=== PATIENT | male | born 1980 | race Caucasian/White ===

== ENCOUNTER 2018-12-31 16:14 | Emergency (ER) | payer OTHER ==
[~2018-12-31] VITALS: Ht 185.4 cm; Wt 156.5 kg
[2018-12-31] MEDS: ONDANSETRON 4 MG (ZOFRAN) ORAL DISSOLVE TAB ONE ×2 (16:36→16:46)
[2018-12-31] MEDS ORDERED: LACTATED RINGERS 1,000 ML IV ONE (16:40)
[2018-12-31] MEDS ORDERED: ONDANSETRON 4 MG (ZOFRAN) ORAL DISSOLVE TAB SL ONE (16:45)
[2018-12-31 16:48] LABS: BASOPHILS # (AUTO) 0.1 10^3/uL (0.0-0.1); BASOPHILS % (AUTO) 1 % (0-10); EOSINOPHILS # (AUTO) 0.3 10^3/uL (0.0-0.3); EOSINOPHILS % (AUTO) 4 % (0-10); HEMATOCRIT 46 % (40-54); HEMOGLOBIN 15.8 G/DL (13.3-17.7); LYMPHOCYTES # (AUTO) 3.2 X 10^3 (1.0-4.0); LYMPHOCYTES % (AUTO) 41 % (12-44); MEAN CORPUSCULAR HEMOGLOBIN 29 PG (25-34); MEAN CORPUSCULAR HGB CONC 34 G/DL (32-36); MEAN CORPUSCULAR VOLUME 84 FL (80-99); MEAN PLATELET VOLUME 8.7 FL (7.4-10.4); MONOCYTES # (AUTO) 0.7 X 10^3 (0.0-1.0); MONOCYTES % (AUTO) 9 % (0-12); NEUTROPHILS # (AUTO) 3.6 X 10^3 (1.8-7.8); NEUTROPHILS % (AUTO) 46 % (42-75); PLATELET COUNT 280 10^3/uL (130-400); RED CELL DISTRIBUTION WIDTH 12.7 % (10.0-14.5); WHITE BLOOD COUNT 7.9 10^3/uL (4.3-11.0)
[2018-12-31 17:08] LABS: ALANINE AMINOTRANSFERASE 59 U/L (0-55); ALBUMIN 4.2 GM/DL (3.2-4.5); ALKALINE PHOSPHATASE 78 U/L (40-136); BILIRUBIN,TOTAL 0.4 MG/DL (0.1-1.0); BUN/CREATININE RATIO 14; CALCIUM 10.3 MG/DL (8.5-10.1); CARBON DIOXIDE 23 MMOL/L (21-32); CHLORIDE 106 MMOL/L (98-107); CREATININE SERUM 0.87 MG/DL (0.60-1.30); GFR ESTIMATED > 60; GLUCOSE 104 MG/DL (70-105); MAGNESIUM 1.9 MG/DL (1.8-2.4); POTASSIUM 3.7 MMOL/L (3.6-5.0); SODIUM 141 MMOL/L (135-145); TOTAL PROTEIN 7.5 GM/DL (6.4-8.2)
--- OUTSIDE RECORDS SUMMARY | 2018-12-31 17:20 | XMS REPORT | Continuity of Care Document ---
Author Organization Unknown Address Unknown Allergies Active Description Code Type Severity Reaction Onset Reported/Identified Relationship to Patient Clinical Status Yes NKA Drug N/A N/A Yes NKA Drug N/A N/A Medications Medication Packaging Start Date Stop Date Route Dosage Sig lisinopril 10/28/2016 11/05/2018 PO 20 mg / 1 tab sertraline 11/02/2018 PO 50 mg / 1 tab albuterol 11/02/2018 INH Proventil HFA 90 mcg/inh inhalation aerosol ergocalciferol 11/07/2018 [place] [id number] Unit (Int) / 1 cap Problems Date Dx Coded Attending Type Code Diagnosis Diagnosed By 12/20/2014 Vickey Hewitt Final 246.9 Unspecified Disorder of Thyroid Procedures There is no data. Results Test Result Range CBCA - 11/02/18 14:00 RDW 12.0 ZZ 11.5-14.0 MCH 28.5 ZZ 27.0-31.0 CREATINE KINASE (CPK) - 11/02/18 14:00 CK 99 ZZ 22-269 TSH, REFLEX TO FREE T4 - 11/02/18 14:00 Thyroid Stimulating Hormone 1.98 ZZ 0.34-5.60 Encounters ACCT No. Visit Date/Time Discharge Status Pt. Type Provider Facility Loc./Unit Complaint [id number] 11/02/2018 17:05:00 11/02/2018 23:59:00 DIS Outpatient Scott Capone [facility] FMBL [id number] 12/20/2014 10:36:00 12/20/2014 23:59:00 DIS Outpatient Vickey Hewitt Guarantor/person LAB LAB-FNA [id number] 11/02/2018 13:05:42 11/02/2018 23:59:59 DIS Outpatient Scott Capone [facility] FMB concerns [id number] 06/01/2018 08:05:14 06/01/2018 23:59:59 CLS Outpatient TEE MARTINEZ [facility] FMB PAIN IN [place] [id number] 11/12/2016 13:37:32 11/12/2016 23:59:59 CLS Outpatient Caridad Blair [facility] FMB LAB AND B/P CHECK [id number] 10/28/2016 10:54:44 10/28/2016 23:59:59 CLS Outpatient Caridad Blair [facility] FMB CK BP/BEEN WATCHING IT [id number] 11/20/2016 20:45:02 ACT Document Registration
--- NOTE | 2018-12-31 17:21 | ED General ---
General Chief Complaint: Dizziness/Syncope Stated Complaint: DIZZINESS Nursing Triage Note: AMB TO ROOM REPORTS WAS DRIVING CAR WHEN HE BECAME DIZZY WITH NAUSEA AND VOMITING Nursing Sepsis Screen: No Definite Risk Source of Information: Patient, Family Exam Limitations: No Limitations History of Present Illness Date Seen by Provider: Dec 31, 2018 Time Seen by Provider: 16:22 Initial Comments This 38-year-old gentleman presents to the emergency room by private vehicle after having a sudden bout of dizziness and vomiting. He was driving after spending a little time fishing when he suddenly felt dizzy. Vomiting ensued after the dizziness. He denies any disequilibrium or neurologic deficits. Dizziness is not dependent on movement or orthostatic position. He denies ever experiencing this before. He is feeling better now than he did when he was driving. He is from [place], [place] and is here visiting his aunt. He denies any recent acute illnesses, fever, drug or alcohol use, or other acute problems. Dizziness is described as a vertigo or spinning type of sensation. He denies disequilibrium, confusion, or lightheadedness. He denies any chest pain, palpitations or shortness of breath. Allergies and Home Medications Allergies Coded Allergies: No Known Drug Allergies (Unverified , 12/31/18) Home Medications Ondansetron 4 Mg Tab.rapdis, 4 MG SL Q4H PRN for NAUSEA/VOMITING Prescribed by: NARDA BECERRA on 12/31/18 0391 Patient Home Medication List Home Medication List Reviewed: Yes Review of Systems Review of Systems Constitutional: no symptoms reported EENTM: no symptoms reported Respiratory: no symptoms reported Cardiovascular: see HPI Gastrointestinal: no symptoms reported Genitourinary: no symptoms reported Musculoskeletal: no symptoms reported Skin: no symptoms reported Psychiatric/Neurological: See HPI Hematologic/Lymphatic: No Symptoms Reported Immunological/Allergic: no symptoms reported Past Vrezoup-Ohzffc-Unysts Hx Past Med/Social Hx: Reviewed and Corrections made Patient Social History Alcohol Use: Denies Use Recreational Drug Use: No Smoking Status: Never a Smoker Recent Foreign Travel: No Contact w/Someone Who Travel: No Recent Infectious Disease Expo: No Past Medical History Surgeries: Yes (THYROID) Orthopedic Respiratory: No Cardiac: Yes Hypertension Neurological: No Genitourinary: No Gastrointestinal: No Musculoskeletal: No Endocrine: Yes (vitamin D deficiency) Cancer: No Psychosocial: No Integumentary: No Physical Exam Vital Signs Vital Signs - First Documented 4/20/19 16:20 Temp 98.0 Pulse 91 Resp 18 B/P (MAP) 141/97 (112) Pulse Ox 94 O2 Delivery Room Air Capillary Refill : Less Than 3 Seconds Height, Weight, BMI Height: 6'1.00" Weight: 345lbs. oz. 156.350431fw; BMI Method:Stated General Appearance: No Apparent Distress, WD/WN, Obese HEENT: PERRL/EOMI, TMs Normal, Normal ENT Inspection, Pharynx Normal Neck: Normal Inspection; No Carotid Bruit, No JVD Respiratory: Lungs Clear, Normal Breath Sounds, No Accessory Muscle Use, No Respiratory Distress Cardiovascular: Regular Rate, Rhythm, No Edema, No Murmur Gastrointestinal: Normal Bowel Sounds; No Distended Extremity: Normal Inspection, No Pedal Edema Neurologic/Psychiatric: Alert, Oriented x3, No Motor/Sensory Deficits, Normal Mood/Affect, senior compensation analyst II-XII Norm as Tested, Other (normal heel to fowler and finger to nose. Normal gait. [place]-Hallpike negative bilaterally) Skin: Normal Color, Warm/Dry Progress/Results/Core Measures Suspected Sepsis Recent Fever Within 48 Hours: No Infection Criteria Present: None New/Unexplained Altered Menta: No Sepsis Screen: No Definite Risk SIRS Temperature:98.0 Pulse: 91 Respiratory Rate: 18 Laboratory Tests 12/31/18 16:41: White Blood Count 7.9 Blood Pressure 141 /97 Mean: 112 Laboratory Tests 12/31/18 16:41: Creatinine 0.87, Platelet Count 280, Total Bilirubin 0.4 Results/Orders Lab Results Laboratory Tests Test 12/31/18 16:41 12/31/18 17:19 Range/Units White Blood Count 7.9 4.3-11.0 10^3/uL Red Blood Count 5.48 4.35-5.85 10^6/uL Hemoglobin 15.8 13.3-17.7 G/DL Hematocrit 46 40-54 % Mean Corpuscular Volume 84 80-99 FL Mean Corpuscular Hemoglobin 29 25-34 PG Mean Corpuscular Hemoglobin Concent 34 32-36 G/DL Red Cell Distribution Width 12.7 10.0-14.5 % Platelet Count 280 130-400 10^3/uL Mean Platelet Volume 8.7 7.4-10.4 FL Neutrophils (%) (Auto) 46 42-75 % Lymphocytes (%) (Auto) 41 12-44 % Monocytes (%) (Auto) 9 0-12 % Eosinophils (%) (Auto) 4 0-10 % Basophils (%) (Auto) 1 0-10 % Neutrophils # (Auto) 3.6 1.8-7.8 X 10^3 Lymphocytes # (Auto) 3.2 1.0-4.0 X 10^3 Monocytes # (Auto) 0.7 0.0-1.0 X 10^3 Eosinophils # (Auto) 0.3 0.0-0.3 10^3/uL Basophils # (Auto) 0.1 0.0-0.1 10^3/uL Sodium Level 141 135-145 MMOL/L Potassium Level 3.7 3.6-5.0 MMOL/L Chloride Level 106 98-107 MMOL/L Carbon Dioxide Level 23 21-32 MMOL/L Anion Gap 12 5-14 MMOL/L Blood Urea Nitrogen 12 7-18 MG/DL Creatinine 0.87 0.60-1.30 MG/DL Estimat Glomerular Filtration Rate > 60 BUN/Creatinine Ratio 14 Glucose Level 104 70-105 MG/DL Calcium Level 10.3 H 8.5-10.1 MG/DL Corrected Calcium 10.1 8.5-10.1 MG/DL Magnesium Level 1.9 1.8-2.4 MG/DL Total Bilirubin 0.4 0.1-1.0 MG/DL Aspartate Amino Transf (AST/SGOT) 30 5-34 U/L Alanine Aminotransferase (ALT/SGPT) 59 H 0-55 U/L Alkaline Phosphatase 78 40-136 U/L Total Protein 7.5 6.4-8.2 GM/DL Albumin 4.2 3.2-4.5 GM/DL Urine Color YELLOW Urine Clarity SLIGHTLY CLOUDY Urine pH 5 5-9 Urine Specific [place] 1.025 H 1.016-1.022 Urine Protein 1+ H NEGATIVE Urine Glucose (UA) NEGATIVE NEGATIVE Urine Ketones NEGATIVE NEGATIVE Urine Nitrite NEGATIVE NEGATIVE Urine Bilirubin NEGATIVE NEGATIVE Urine Urobilinogen 1 NORMAL MG/DL Urine Leukocyte Esterase NEGATIVE NEGATIVE Urine RBC (Auto) NEGATIVE NEGATIVE Urine RBC NONE /HPF Urine WBC RARE /HPF Urine Squamous Epithelial Cells NONE /HPF Urine Crystals PRESENT H /LPF Urine Amorphous Sediment FEW PRASHANTH URATES H /LPF Urine Bacteria TRACE /HPF Urine Casts PRESENT /LPF Urine Hyaline Casts RARE /LPF Urine Mucus MODERATE H /LPF Urine Culture Indicated NO My Orders Orders - NARDA MONAE MD Ondansetron Oral Dissolve Tab (Zofran (12/31/18 16:33) Cbc With Automated Diff (12/31/18 16:40) Comprehensive Metabolic Panel (12/31/18 16:40) Magnesium (12/31/18 16:40) Ua Culture If Indicated (12/31/18 16:40) Ed Iv/Invasive Line Start (12/31/18 16:40) Ed Iv/Invasive Line Start (12/31/18 16:40) Lactated Ringers (Lr 1000 Ml Iv Solution (12/31/18 16:40) Ondansetron Oral Dissolve Tab (Zofran (12/31/18 16:45) Medications Given in ED Current Medications Medications Dose Ordered Sig/Radha Route Start Time Stop Time Status Last Admin Dose Admin Lactated Ringer's 1,000 ml @ 0 mls/hr Q0M ONCE IV 12/31/18 16:40 12/31/18 16:42 DC 12/31/18 16:47 1,000 MLS/HR Ondansetron HCl 8 mg ONCE ONCE SL 12/31/18 16:45 12/31/18 16:46 DC 12/31/18 16:36 8 MG Vital Signs/I&O 12/31/18 16:20 Temp 98.0 Pulse 91 Resp 18 B/P (MAP) 141/97 (112) Pulse Ox 94 O2 Delivery Room Air Capillary Refill : Less Than 3 Seconds Blood Pressure Mean: 112 Progress Note #1: Progress Note Patient was given Zofran sublingually and during the Eric-Hallpike maneuver. Eric -Hallpike revealed no clear evidence of BPPV. Patient had no identifiable neurologic deficits. IV was established and 1 L of IV fluid was administered. Electrolytes were checked. Rhythm was a normal sinus rhythm on the monitor. Progress Note #2: Time: 18:11 Progress Note Patient's symptoms dissipated. He finished the 1 L of IV fluids and heart rate decreased from around 90 down to the 70s. Workup was relatively unremarkable. He was dismissed home with return precautions. Departure Impression Primary Impression: Dizziness Additional Impression: Nausea and vomiting Qualified Codes: R11.2 - Nausea with vomiting, unspecified Disposition: 01 HOME, SELF-CARE Condition: Improved Departure-Patient Inst. Decision time for Depature: 18:02 Referrals: NO,LOCAL PHYSICIAN (PCP/Family) Primary Care Physician Patient Instructions: Nausea and Vomiting, Adult (DC), Labyrinthitis Add. Discharge Instructions: The exact cause of your dizziness is uncertain but may be related to viral illness. Follow-up with your primary care provider soon as possible. Return to the emergency room if you have worsening symptoms. For dizziness, you may take meclizine purchased [id number]. Fill the Zofran (ondansetron) as prescribed if needed to treat nausea and vomiting. Drink plenty of clear liquids. All discharge instructions reviewed with patient and/or family. Voiced understanding. Scripts Ondansetron (Ondansetron Odt) 4 Mg Tab.rapdis 4 MG SL Q4H PRN for NAUSEA/VOMITING, #10 TAB Prov: NARDA MONAE MD 12/31/18 NARDA MONAE MD Dec 31, 2018 17:21
--- NOTE | 2018-12-31 17:24 | NUR ---
AMB TO BATHROOM TO OBTAIN UA NO PROBLEM WHILE AMBULATING.
[2018-12-31 17:25] LABS: BILIRUBIN,URINE NEGATIVE (NEGATIVE); CLARITY,URINE SLIGHTLY CLOUDY; COLOR,URINE YELLOW; GLUCOSE, URINE (UA) NEGATIVE (NEGATIVE); KETONES,URINE NEGATIVE (NEGATIVE); LEUKOCYTE ESTERASE ,URINE NEGATIVE (NEGATIVE); NITRITE,URINE NEGATIVE (NEGATIVE); PH,URINE 5 (5-9); PROTEIN,URINE 1+ (NEGATIVE); UROBILINOGEN,URINE 1 MG/DL (NORMAL)
[2018-12-31 17:32] LABS: AMORPHOUS SEDIMENT,UR FEW AMOR URATES /LPF; BACTERIA,URINE TRACE /HPF; HYALINE CASTS, URINE RARE /LPF; WBC,URINE RARE /HPF
[2018-12-31] MEDS ORDERED: ONDA4TAB11 SL (18:05)
[2018-12-31 18:18] VITALS: BP 125/87
== END 2018-12-31 18:18 | disposition home or self-care (01) ==
LOC: EDUNIT# 16:14 → ER 16:16
DX: R42 Dizziness and giddiness (principal); R11.2 Nausea with vomiting, unspecified; I10 Essential (primary) hypertension
CPT/HCPCS: 36415; 80053; 81000; 83735; 85025; 96360